=== PATIENT | female | born 1990 ===

== ENCOUNTER 2018-09-11 15:33 | Emergency (ER) | payer OTHER ==
[~2018-09-11] VITALS: Ht 157.5 cm; Wt 88.5 kg
[~2018-09-11 15:33] MED LIST: CEFADROXIL500 MG; LEVOCETIRIZINE D5 MG; METH16TA; PEPCID40 MG PO; [UNRECOGNIZED DRUG - OTHER]
== END 2018-09-11 21:53 | disposition home or self-care (01) ==
LOC: ER 15:33
DX: K52.9 Noninfective gastroenteritis and colitis, unspecified (principal); E86.0 Dehydration; R11.0 Nausea